=== PATIENT | male | born 1950 ===

== ENCOUNTER 2017-09-03 02:10 | Emergency (ER) | payer SELFPAY ==
[2017-09-03] MEDS ORDERED: ASPIRIN PO ONE (02:23)
[2017-09-03 02:40] VITALS: BP 138/73
[2017-09-03 02:41] LABS: Hematocrit 32.3 % (35.5-45.6); Hemoglobin 10.8 gm/dl (11.8-15.2); Mean Corpuscular HGB Conc 34 % (32-34); Mean Corpuscular Hemoglobin 30 pg (28-32); Mean Corpuscular Volume 89 fl (84-94); Platelet Count 152 K/mm3 (140-440); Red Blood Count 3.63 M/mm3 (3.65-5.03); Red Cell Distribution Width 18.5 % (13.2-15.2)
[2017-09-03 03:35] LABS: Alanine Aminotransferase 12 units/L (7-56); Albumin 4.1 g/dL (3.9-5); BUN/Creatinine Ratio 10; Blood Urea Nitrogen 6 mg/dL (9-20); Calcium 9.1 mg/dL (8.4-10.2); Hemolysis Index 14
[2017-09-03 04:19] LABS: Basophils % (Manual) 0 % (0.0-1.8); Eosinophils % (Manual) 0 % (0.0-4.3); Total Cells Counted 100
[2017-09-03 04:20] LABS: Anisocytosis 1+; Burr Cells Few; Hypochromasia 1+; Poikilocytosis Few; Target Cells Few
== END 2017-09-03 02:45 | disposition left against medical advice (07) ==
LOC: ED 02:10
DX: R07.9 Chest pain, unspecified (principal); Z53.21 Procedure and treatment not carried out due to patient leaving prior to being seen by health care provider
CPT/HCPCS: 36415; 80053; 84484; 85007; 85025; 93005; 93010